=== PATIENT | male | born 1940 | race Caucasian/White ===

== ENCOUNTER 2019-02-07 06:23 | Day surgery (SDC) | payer OTHER ==
[~2019-02-07] VITALS: Ht 152.4 cm; Wt 73.9 kg
[2019-02-07] MEDS ORDERED: BENAZEPRIL (08:11)
[2019-02-07 08:13] VITALS: Ht 152.4 cm; Wt 73.9 kg
[2019-02-07 08:34] VITALS: BP 161/69; PULSE 78; RESP 18
--- NOTE | 2019-02-07 09:29 | PREAC ---
Date/Time of Note Date/Time of Note DATE: 02/07/19 TIME: 09:27 Anesthesia Eval and Record Evaluation Time Pre-Procedure Interview DATE: 02/07/19 TIME: 09:27 Age 78 Sex male NPO: 8 hrs Preoperative diagnosis Colon screening Planned procedure Colonoscopy Past Medical History Past Medical History: Includes Cardio: HTN, Dyslipidemia Surgery & Anesthesia Issues No known issue Meds Anticoagulation: No Beta Rene within 24 hr: No Reason Beta Rene not given: Pt. not on B-Rene Reported Medications [Benazepril] No Conflict Check 02/07/19 Meds reviewed: Yes Allergies Coded Allergies: No Known Allergy (Unverified , 02/07/19) Allergies Reviewed: Yes Labs/Studies Labs Reviewed: Reviewed by anesthesiologist test: N/A Studies: ECG Pre-procedure Exam Last vitals Vital Signs Date Temp Pulse Resp B/P (MAP) Pulse Ox O2 O2 Flow FiO2 Time Delivery Rate 02/07/19 98.0 78 18 161/69 99 Room Air 08:34 (99) Airway: Adequate mouth opening, Adequate thyromental dist Mallampati: Mallampati II Teeth: Normal Lung: Normal Heart: Normal ASA Physical Status ASA physical status: 3 Emergency: None Planned Anesthetic General/MAC: MAC Planned Pain Management Parenteral pain med Pre-operative Attestations Prior to commencing anesthesia and surgery, the patient was re-evaluated, there was verification of: *The patient's identity *The results of appropriate recent lab work and preoperative vital signs *The above evaluation not changing prior to induction *Anesthetic plan, risk benefits, alternative and complications discussed with patient/family; questions answered; patient/family understands, accepts and wishes to proceed. ARTURO TURNER MD Feb 07, 2019 09:29
[2019-02-07] MEDS ORDERED: LIDOCAINE 2% (SDV) 5 ML INJ ONE (09:35)
[2019-02-07] MEDS ORDERED: PROPOFOL 40 ML ONE (09:35)
--- NOTE | 2019-02-07 10:07 | PAC ---
Date/Time of Note Date/Time of Note DATE: 02/07/19 TIME: 10:06 Post-Anesthesia Notes Post-Anesthesia Note Last documented vital signs Vital Signs Date Temp Pulse Resp B/P (MAP) Pulse Ox O2 O2 Flow FiO2 Time Delivery Rate 02/07/19 98.0 78 18 161/69 99 Room Air 08:34 (99) Activity: WNL Respiratory function: WNL Cardiovascular function: WNL Mental status: Baseline Pain reasonably controlled: Yes Hydration appropriate: Yes Nausea/Vomiting absent: Yes Comments BP:124/67, P:76, Spo2:100%, T:98,8 ARTURO TURNER MD Feb 07, 2019 10:07
[2019-02-07 10:29] VITALS: BP 147/72; PULSE 64; RESP 16
== END 2019-02-07 11:41 | disposition home or self-care (01) ==
LOC: GIL 06:23
PROVIDERS: ATTEND Internal Medicine Gastroenterology
DX: K92.1 Melena (principal); K64.8 Other hemorrhoids; D12.5 Benign neoplasm of sigmoid colon; K57.30 Diverticulosis of large intestine without perforation or abscess without bleeding; I10 Essential (primary) hypertension
CPT/HCPCS: 45380; 45385; 88305; Z7610